=== PATIENT | female | born 1975 | race African-American/Black ===

== ENCOUNTER 2022-09-16 07:45 | Emergency (ER) | payer BC, OTHER ==
[2022-09-16 07:57] VITALS: BP 131/86; PULSE 100; RESP 18; TEMP 98.6; BMI 27.6
== END 2022-09-16 11:34 | disposition home or self-care (01) ==
LOC: JER 07:45 → JERFT 07:45
DX: S93.492A Sprain of other ligament of left ankle, initial encounter (principal); Y99.8 Other external cause status
CPT/HCPCS: 73610-TC-LT-FY; 73630-TC-LT; 99283-25